=== PATIENT | female | born 1950 | race Caucasian/White ===

== ENCOUNTER → 2020-10-06 07:25 | Outpatient (CLI) | payer OTHER, SELFPAY ==
[2020-10-06 08:30] LABS: Add Manual Diff / Slide Review NO; Basophils Absolute Auto 100 /uL (0-100); Basophils Percent Auto 2.3 % (0-2); Eosinophils Absolute Auto 300 /uL (0-450); Eosinophils Percent Auto 8.7 % (2-4); Hematocrit 39.9 % (36-46); Hemoglobin 13.5 g/dL (12.0-16.0); Lymphocytes Absolute Auto 1900 /uL (1100-4500); Lymphocytes Percent Auto 49.3 % (25-40); Mean Corpuscular HGB Conc 33.8 % (30-36); Mean Corpuscular Hemoglobin 29.9 PG (26-34); Mean Corpuscular Volume 88.6 fL (80-100); Monocytes Absolute Auto 500 /uL (0-900); Monocytes Percent Auto 13.5 % (3-14); Neutrophils Absolute Auto 1000 /uL (1500-7000); Neutrophils Percent Auto 26.2 % (50-75); Platelet Count 214 X10^3/uL (150-400); Red Blood Cell Count 4.51 X10^6/uL (4.0-5.2); Red Cell Distribution Width 13.1 % (11.6-14.8); White Blood Cell Count 3.9 X10^3/uL (4.5-11.0)
[2020-10-06 08:53] LABS: Alanine Aminotransferase 23 IU/L (<35); Albumin 3.9 g/dL (3.5-5.0); Albumin Globulin Ratio 1.3 (1.0-2.8); Alkaline Phosphatase 101 U/L (38-126); Aspartate Aminotransferase 33 IU/L (14-36); BUN Creatinine Ratio 22.6 (6-22); Bilirubin Total 0.8 mg/dL (0.2-1.3); Blood Urea Nitrogen 21 mg/dL (7-17); Calcium 9.5 mg/dL (8.4-10.2); Carbon Dioxide 33 mmol/L (22-32); Chloride 108 mmol/L (98-107); Cholesterol 144 mg/dL (140-199); Estimated Glomerular Filt Rate 59.6 mL/min (>60); Globulin 2.9 g/dL (1.7-4.1); Glucose 98 mg/dL (80-110); HDL Cholesterol 58 mg/dL (40-60); HEMOLYSIS < 15 (0-50); LDL Cholesterol Calculated 57 mg/dL (<100); Potassium 4.9 mmol/L (3.4-5.1); Sodium 141 mmol/L (137-145); Total Protein 6.8 g/dL (6.3-8.2); Triglycerides 143 mg/dL (35-150)
[2020-10-06 09:59] LABS: Appearance Urine UA CLEAR; Bilirubin Urine UA NEGATIVE (NEGATIVE); Color Urine UA YELLOW; Glucose Urine UA NEGATIVE (Negative); Ketones Urine UA NEGATIVE (NEGATIVE); Leukocyte Esterase Urine UA 1+ (NEGATIVE); Nitrite Urine UA NEGATIVE (Negative); Occult Blood Urine UA NEGATIVE (Negative); Protein Urine UA NEGATIVE (Negative); Specific Gravity Urine UA 1.025 (1.000-1.035); Urobilinogen Urine UA 0.2 E.U./dL (0.2)
[2020-10-06 10:04] LABS: pH Urine UA 5.5 (4.5-8.0)
[2020-10-06 10:13] LABS: Bacteria Urine Few (2-10); Culture Indicated Urine Specimen Cultured; RBC Urine 0-1/HPF (0-5/HPF); Renal Epithelial Cells Urine 1-5/HPF (0-1/HPF); Squamous Epithelial Cell Urine 0-1 /HPF (0-5/HPF); Transitional Epi Cells Urine 1-5/HPF (0-5/HPF); WBC Urine 5-10/HPF (0-5/HPF)
== END ==
PROVIDERS: PCP Registered Nurse; Referring Provider Registered Nurse; Visit Provider Registered Nurse
DX: Z00.00 Encounter for general adult medical examination without abnormal findings (principal); I10 Essential (primary) hypertension; E78.5 Hyperlipidemia, unspecified
CPT/HCPCS: 36415; 80053; 80061; 81003; 81015; 85025; 87086

== ENCOUNTER → 2021-08-31 12:45 | Outpatient (CLI) | payer OTHER, SELFPAY ==
--- NOTE | 2021-08-31 12:49 | DI.RAD.S_ITS ---
PROCEDURE: XR FOOT RT MIN 3V INDICATIONS: Right foot pain TECHNIQUE: 3 views of the foot were acquired. COMPARISON: None. FINDINGS: Bones: No acute, displaced fracture. Moderate degenerative changes about the 1st metatarsophalangeal joint with osteophytosis and joint space loss. The 3rd tarsometatarsal articulation is not well seen, which may reflect degenerative change. No suspicious bony lesions. Soft tissues: No tibiotalar joint effusion. IMPRESSION: No acute osseous abnormality. Dictated by: Cosme Alexandra M.D. on 08/31/2021 at 13:56 Approved by: Cosme Alexandra M.D. on 08/31/2021 at 13:58
== END ==
PROVIDERS: PCP Registered Nurse; Referring Provider Nurse Practitioner; Visit Provider Nurse Practitioner
DX: M79.671 Pain in right foot (principal)
CPT/HCPCS: 73630

== ENCOUNTER 2024-11-23 07:25 | Inpatient (IN) | payer OTHER, SELFPAY ==
[2024-11-23] VITALS (71 sets, daily range): BP systolic 84–146; BP diastolic 43–84; PULSE 57–91; RESP 9–28; TEMP 37.2–38.8; O2SAT 89–100; BMI 26.2
--- NOTE | 2024-11-23 07:44 | DI.RAD.S_ITS ---
PROCEDURE: XR CHEST 1V INDICATIONS: fever TECHNIQUE: One view of the chest was acquired. COMPARISON: None. FINDINGS: Surgical changes and devices: None. Lungs and pleura: Mild patchy bibasilar atelectasis. No pleural effusions or pneumothorax. Mediastinum: Mediastinal contours appear normal. Heart size is normal. Bones and chest wall: No suspicious bony lesions. Overlying soft tissues appear unremarkable. IMPRESSION: Mild patchy bibasilar atelectasis. Dictated by: Seth Shepard M.D. on 11/23/2024 at 8:21 Approved by: Seth Shepard M.D. on 11/23/2024 at 8:22
--- NOTE | 2024-11-23 07:56 | ED_ITS ---
HPI - Fall General Chief Complaint: Fall Stated Complaint: GLF Time Seen by Provider: 11/23/24 07:44 History of Present Illness HPI Narrative: Patient 74-year-old female history of hyperlipidemia hypertension presenting today with a syncopal episode. Sounds like she was getting up to walk when she fell and hit her head. On known loss of consciousness. Does not appear to be on anticoagulation or antiplatelet medication. She was found to be febrile with a temperature of 101?. She denies any injury or pain from her fall. She is diffusely weak. Denies any sort cough or sore throat no nausea or vomiting. It sounds like she has not felt well for a couple days. She and both are poor historians Related Data Home Medications Medication Instructions Recorded Confirmed nitroglycerin 0.4 mg sublingual 0.4 mg sublingual PRN PRN Angina 11/23/24 11/23/24 tablet Allergies Allergy/AdvReac Type Severity Reaction Status Date / Time No Known Drug Allergies Allergy Verified 08/31/21 14:34 Patient History Surgical History Anesthesia History of cholecystectomy (~1990) Family History Father History of heart disease Mother Stroke Social History household members: spouse and family Smoking Status: Never smoker alcohol intake: current Smoking Status: Never smoker Exam Initial Vital Signs Initial Vital Signs: Vital Signs Pulse Rate 81 11/23/24 07:29 Respiratory Rate 22 11/23/24 07:29 Pulse Oximetry 94 11/23/24 07:29 GENERAL: Alert week 74-year-old female and in no acute distress. HEENT: Head atraumatic,EOMI, pupils reactive, face symmetric, dry mucous membranes CARDIOVASCULAR: Regular rate and rhythm without murmurs, rubs or gallops. RESPIRATORY: Breath sounds equal bilaterally, no wheezes rales or rhonchi. ABDOMEN: Soft, nontender. Normoactive bowel sounds all 4 quadrants. No guarding or rebound. EXTREMITIES: Normal range of motion, no clubbing or edema. Neurovascularly intact NEUROLOGICAL: Alert and oriented x4. [employer] Tender strength equal bilaterally lower extremities bilaterally diffusely weak SKIN: Warm, dry, no laceration, no petechiae, no rashes or lesions. Course Orders Ordered: ED Orders 11/23/24 12:40 UA Complete [Urinalysis and Microscopic] Stat 11/23/24 12:53 US abdomen limited Stat 11/23/24 13:35 Lactate (Lactic Acid) Stat 11/23/24 14:12 Blood Culture Stat Acetaminophen (Acetaminophen 325 Mg Tablet) 650 mg PO Q6H PRN PRN Reason: Fever/Mild Pain (1-3) Enoxaparin Sodium (Enoxaparin 40 Mg/0.4 Ml Syringe) 40 mg SUBCUT DAILY [facility] Sodium Chloride (Normal Saline 0.9%) 1,000 mls @ 100 mls/hr IV CONT FRANCISCO Last Admin: 11/23/24 18:31 Dose: 100 mls/hr Documented By: CLL Ibuprofen (Ibuprofen 400 Mg Tablet) 400 mg PO Q4H PRN PRN Reason: Pain, Mild (1-3) Naloxone HCl (Naloxone 0.4 Mg/Ml Vial) 0.2 mg IV Q2MIN PRN PRN Reason: Opiate Reversal Ondansetron HCl (Ondansetron 4 Mg Odt) 4 mg PO Q8HR PRN PRN Reason: Nausea And Vomiting Last Admin: 11/23/24 18:33 Dose: 4 mg Documented By: ERIS Oseltamivir Phosphate (Oseltamivir 75 Mg Capsule) 75 mg PO BID [facility] Last Admin: 11/23/24 16:36 Dose: 75 mg Documented By: TLS Discontinued Medications Acetaminophen (Acetaminophen 325 Mg Tablet) 975 mg PO NOW ONE Stop: 11/23/24 08:43 Last Admin: 11/23/24 09:10 Dose: 975 mg Documented By: SPF Sodium Chloride (Normal Saline 0.9%) 1,000 mls @ 1,000 mls/hr IV BOLUS ONE Stop: 11/23/24 09:41 Last Infusion: 11/23/24 10:47 Dose: Infused Documented By: Admin: 11/23/24 09:10 Dose: 1,000 mls/hr Documented By: SPF Sodium Chloride (Normal Saline 0.9%) 2,013.96 mls @ 671.32 mls/hr 30 ml/kg infuse over 3 hr (2013.96 ml) IV NOW ONE Stop: 11/23/24 14:36 Last Infusion: 11/23/24 15:00 Dose: Infused Documented By: Admin: 11/23/24 11:57 Dose: 671.32 mls/hr Documented By: SP Ceftriaxone Sodium 1,000 mg/ (Sodium Chloride) 100 mls @ 200 mls/hr IV NOW ONE Stop: 11/23/24 11:38 Last Infusion: 11/23/24 15:00 Dose: Infused Documented By: Admin: 11/23/24 14:17 Dose: 200 mls/hr Documented By: SP Azithromycin 500 mg/ Dextrose 250 mls @ 250 mls/hr IV NOW ONE Stop: 11/23/24 11:38 Last Admin: 11/23/24 14:57 Dose: 250 mls/hr Documented By: PAOLO Sodium Chloride (Normal Saline 0.9%) 1,000 mls @ 1,000 mls/hr IV BOLUS ONE Stop: 11/23/24 16:44 Last Admin: 11/23/24 16:36 Dose: 1,000 mls/hr Documented By: MICHELLE Vital Signs Vital signs: Vital Signs - 8 hr 11/23/24 11:30 11/23/24 11:30 11/23/24 11:35 Pulse Rate 59 L 57 L Respiratory Rate 17 16 Blood Pressure 88/50 L Pulse Oximetry 97 98 Oxygen Delivery Method Nasal Cannula Oxygen Flow Rate 2 11/23/24 11:35 11/23/24 11:40 11/23/24 11:40 Pulse Rate 58 L Respiratory Rate 20 Blood Pressure 92/50 L 95/50 L Pulse Oximetry 99 Oxygen Delivery Method Nasal Cannula Oxygen Flow Rate 2 11/23/24 11:45 11/23/24 11:45 11/23/24 11:50 Pulse Rate 57 L Respiratory Rate 21 Blood Pressure 86/51 L 94/53 L Pulse Oximetry 99 Oxygen Delivery Method Oxygen Flow Rate 11/23/24 11:50 11/23/24 11:55 11/23/24 11:55 Pulse Rate 63 63 Respiratory Rate 24 18 Blood Pressure 97/51 L Pulse Oximetry 98 99 Oxygen Delivery Method Nasal Cannula Oxygen Flow Rate 2 11/23/24 12:00 11/23/24 12:13 11/23/24 12:13 Pulse Rate 66 89 Respiratory Rate 19 21 Blood Pressure 125/63 Pulse Oximetry 98 98 Oxygen Delivery Method Oxygen Flow Rate 11/23/24 12:15 11/23/24 12:15 11/23/24 12:20 Pulse Rate 77 78 Respiratory Rate 21 24 Blood Pressure 112/54 L Pulse Oximetry 100 100 Oxygen Delivery Method Oxygen Flow Rate 11/23/24 12:20 11/23/24 12:25 11/23/24 12:25 Pulse Rate 79 Respiratory Rate 24 Blood Pressure 113/58 L 106/54 L Pulse Oximetry 99 Oxygen Delivery Method Nasal Cannula Oxygen Flow Rate 2 11/23/24 12:30 11/23/24 12:30 11/23/24 12:35 Pulse Rate 75 Respiratory Rate 21 Blood Pressure 115/54 L 109/55 L Pulse Oximetry 100 Oxygen Delivery Method Oxygen Flow Rate 11/23/24 12:35 11/23/24 12:40 11/23/24 12:40 Pulse Rate 76 75 Respiratory Rate 23 Blood Pressure 106/55 L Pulse Oximetry 100 99 Oxygen Delivery Method Nasal Cannula Oxygen Flow Rate 2 11/23/24 12:45 11/23/24 12:45 11/23/24 12:50 Pulse Rate 78 72 Respiratory Rate 20 22 Blood Pressure 115/58 L Pulse Oximetry 98 99 Oxygen Delivery Method Oxygen Flow Rate 11/23/24 12:50 11/23/24 12:55 11/23/24 12:55 Pulse Rate 68 Respiratory Rate 23 Blood Pressure 111/54 L 101/52 L Pulse Oximetry 99 Oxygen Delivery Method Nasal Cannula Oxygen Flow Rate 2 11/23/24 13:00 11/23/24 13:00 11/23/24 13:05 Pulse Rate 60 66 Respiratory Rate 19 20 Blood Pressure 97/52 L Pulse Oximetry 100 99 Oxygen Delivery Method Oxygen Flow Rate 11/23/24 13:05 11/23/24 13:10 11/23/24 13:10 Pulse Rate 71 Respiratory Rate 23 Blood Pressure 97/50 L 90/48 L Pulse Oximetry 98 Oxygen Delivery Method Nasal Cannula Oxygen Flow Rate 2 11/23/24 13:15 11/23/24 13:15 11/23/24 13:20 Pulse Rate 58 L 57 L Respiratory Rate 19 20 Blood Pressure 97/49 L Pulse Oximetry 99 99 Oxygen Delivery Method Oxygen Flow Rate 11/23/24 13:20 11/23/24 13:30 11/23/24 13:40 Pulse Rate 73 69 Respiratory Rate 23 23 Blood Pressure 97/51 L Pulse Oximetry 100 100 Oxygen Delivery Method Oxygen Flow Rate 11/23/24 13:40 Pulse Rate Respiratory Rate Blood Pressure 112/54 L Pulse Oximetry Oxygen Delivery Method Oxygen Flow Rate MDM - Fall Lab Data 11/23/24 07:37 11/23/24 07:37 Labs: Lab Results 11/23/24 11/23/24 11/23/24 Range/Units 07:37 12:40 13:35 WBC 7.3 (4.5-11.0) X10^3/uL RBC 4.43 (4.0-5.2) X10^6/uL Hgb 13.0 (12.0-16.0) g/dL Hct 38.8 (36-46) % MCV 87.6 (80-100) fL MCH 29.4 (26-34) PG MCHC 33.5 (30-36) % RDW 13.5 (11.6-14.8) % Plt Count 238 (150-400) X10^3/uL Neut % (Auto) 86.0 H (50-75) % Lymph % (Auto) 8.5 L (25-40) % [place] % (Auto) 4.6 (3-14) % Eos % (Auto) 0.4 L (2-4) % Baso % (Auto) 0.5 (0-2) % Neut # (Auto) 6300 (6568-0229) /uL Lymph # (Auto) 600 L (6271-0636) /uL [place] # (Auto) 300 (0-900) /uL Eos # (Auto) 0 (0-450) /uL Baso # (Auto) 0 (0-100) /uL Sodium 138 (137-145) mmol/L Potassium 4.3 (3.4-5.1) mmol/L Chloride 106 (98-107) mmol/L Carbon Dioxide 26 (22-32) mmol/L BUN 16 (7-17) mg/dL Creatinine 1.06 H (0.52-1.04) mg/dL Estimated GFR 55 L (>60) mL/min BUN/Creatinine Ratio 15.1 (6-22) Glucose 122 H (80-110) mg/dL Lactate 1.3 1.1 (0.7-2.1) mmol/L Calcium 9.6 (8.4-10.2) mg/dL Total Bilirubin 0.8 (0.2-1.3) mg/dL AST 188 H (14-36) IU/L ALT 86 H (<35) IU/L Alkaline Phosphatase 115 (38-126) U/L Total Creatine Kinase 69 (30-135) U/L Troponin I < 0.012 (0.01-0.034) ng/mL Total Protein 7.4 (6.3-8.2) g/dL Albumin 4.4 (3.5-5.0) g/dL Globulin 3.0 (1.7-4.1) g/dL Albumin/Globulin Ratio 1.5 (1.0-2.8) Procalcitonin 0.201 (<0.5) ng/mL Urine Color Yellow Urine Appearance Clear Urine pH 6.5 (4.5-8.0) Ur Specific [place] 1.010 (1.000-1.035) Urine Protein Negative (Negative) Urine Glucose (UA) Negative (Negative) g/dL Urine Ketones Negative (NEGATIVE) Urine Occult Blood Negative (Negative) Urine Nitrate Negative (Negative) Urine Bilirubin Negative (NEGATIVE) Urine Urobilinogen 2.0 H (0.2) E.U./dL Ur Leukocyte Esterase Negative (NEGATIVE) Urine RBC None seen (0-5/HPF) Urine WBC None seen (0-5/HPF) Ur Squamous Epith Cells None seen (0-5/HPF) Urine Bacteria None seen (None) Ur Culture Indicated? Cult not indicated Vol Urine Centrifuged 10ml (spun) SARS-CoV-2 (PCR) Negative (Negative) Influenza A (RT-PCR) Flu a positive H (NEGATIVE) Influenza B (RT-PCR) Flu b negative (NEGATIVE) RSV (PCR) Negative (Negative) Imaging Data Chest x-ray: Radiologist's Impression: PROCEDURE: XR CHEST 1V INDICATIONS: fever TECHNIQUE: One view of the chest was acquired. COMPARISON: None. FINDINGS: Surgical changes and devices: None. Lungs and pleura: Mild patchy bibasilar atelectasis. No pleural effusions or pneumothorax. Mediastinum: Mediastinal contours appear normal. Heart size is normal. Bones and chest wall: No suspicious bony lesions. Overlying soft tissues appear unremarkable. IMPRESSION: Mild patchy bibasilar atelectasis. Dictated by: Seth Shepard M.D. 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 Pertinent findings: + influenza a Lactate 1.3-->1.1 WBC 7.3 hemoglobin 13.0 hematocrit 38.8 platelets 238 Sodium 138 potassium 4.3 chloride 106 carbon dioxide 26 BUN 16 creatinine 1.0 previously 0.9 Bilirubin 0.8 AST is 188 ALT 86 alk-phos 115 Troponin negative, CPK 69 Independently reviewed EKG as above Sinus rhythm no ischemia Imaging studies independently reviewed: Chest x-ray patchy bibasilar atelectasis Head CT no acute trauma Consultations: Dr. Gordon accepts patient Treatments: Fluids IV Tylenol Sepsis fluids Re-evaluations: Patient blood pressure started decreasing. Sepsis fluids given blood pressure did respond. Repeat lactate 1.1 Discussion: 74-year-old female presenting today after syncopal episode. She is diffusely weak no evidence of trauma. She is found to be febrile with a positive influenza patchy atelectasis on her x-ray but not requiring oxygen. She has not hypoxic. Other blood work is overall reassuring. Critical Care Time Critical Care Time Critical Care Time: Yes Total Critical Care Time: 35 Attestation: The high probability of a clinically significant, sudden or life threatening deterioration of the [cardiovascular] system(s) required my full and direct attention, intervention and personal management. The aggregate critical care time was 35 minutes. This time is in addition to time spent performing reported procedures but includes the following: [x] Data Review and interpretation [x] Patient assessment and monitoring of vital signs [x] Documentation [x] Medication orders and management Discharge Plan Departure Patient Disposition: Admitted As Inpatient Clinical Impression: Sepsis, Influenza A Admit Date/Time: 11/23/24 13:42 Admit Provider: Amilcar Gordon
[2024-11-23 07:57] LABS: Add Manual Diff / Slide Review NO; Basophils Absolute Auto 0 /uL (0-100); Basophils Percent Auto 0.5 % (0-2); Eosinophils Absolute Auto 0 /uL (0-450); Eosinophils Percent Auto 0.4 % (2-4); Hematocrit 38.8 % (36-46); Lymphocytes Absolute Auto 600 /uL (1100-4500); Lymphocytes Percent Auto 8.5 % (25-40); Mean Corpuscular HGB Conc 33.5 % (30-36); Mean Corpuscular Hemoglobin 29.4 PG (26-34); Mean Corpuscular Volume 87.6 fL (80-100); Monocytes Absolute Auto 300 /uL (0-900); Monocytes Percent Auto 4.6 % (3-14); Neutrophils Absolute Auto 6300 /uL (1500-7000); Platelet Count 238 X10^3/uL (150-400); Red Blood Cell Count 4.43 X10^6/uL (4.0-5.2); Red Cell Distribution Width 13.5 % (11.6-14.8); White Blood Cell Count 7.3 X10^3/uL (4.5-11.0)
--- NOTE | 2024-11-23 08:02 | EKG_ITS ---
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
[2024-11-23 08:04] LABS: Lactate (Lactic Acid) 1.3 mmol/L (0.7-2.1)
[2024-11-23 08:05] LABS: Alanine Aminotransferase 86 IU/L (<35); Albumin 4.4 g/dL (3.5-5.0); Albumin Globulin Ratio 1.5 (1.0-2.8); Alkaline Phosphatase 115 U/L (38-126); Aspartate Aminotransferase 188 IU/L (14-36); BUN Creatinine Ratio 15.1 (6-22); Bilirubin Total 0.8 mg/dL (0.2-1.3); Blood Urea Nitrogen 16 mg/dL (7-17); Calcium 9.6 mg/dL (8.4-10.2); Carbon Dioxide 26 mmol/L (22-32); Chloride 106 mmol/L (98-107); Creatine Kinase 69 U/L (30-135); Estimated Glomerular Filt Rate 55 mL/min (>60); Glucose 122 mg/dL (80-110); HEMOLYSIS < 15 (0-50); Potassium 4.3 mmol/L (3.4-5.1); Sodium 138 mmol/L (137-145); Total Protein 7.4 g/dL (6.3-8.2)
[2024-11-23 08:17] LABS: Troponin I < 0.012 ng/mL (0.01-0.034)
[2024-11-23 08:22] LABS: Procalcitonin 0.201 ng/mL (<0.5)
[2024-11-23 08:29] LABS: Influenza A - CEPHEID Flu A POSITIVE (NEGATIVE); Influenza B - CEPHEID Flu B NEGATIVE (NEGATIVE); Respiratory Syncytial Virus Negative (Negative)
[2024-11-23 08:30] LABS: COVID-19 CEPHEID 4-PLEX PCR Negative (Negative)
--- NOTE | 2024-11-23 08:35 | PC.NURSE ---
Pt in bed with incontinent episode. Assisted pt up out of bed and up to the BSC. Pt also had BM incontinence and thorough carri care was performed prior to sitting on commode. Pt continued to have BM and urine sample was contaminated. Changed pt into clean brief and linens changed. Pt had difficulty standing on her own with a walker which is unusual per her . Pt resting in bed, call light in reach and spouse at bedside.
[2024-11-23] MEDS: SODIUM CHLORIDE 0.9% 1,000 ML 1000 ML IV ×2 (09:10→16:36)
[2024-11-23] MEDS: ACETAMINOPHEN 325 MG TABLET 975 MG PO (09:10)
--- NOTE | 2024-11-23 10:10 | DI.CT.S_ITS ---
PROCEDURE: CT HEAD/BRAIN WO CON INDICATIONS: unwitnessed fall TECHNIQUE: Noncontrast 4.5 mm thick angled axial sections acquired from the foramen magnum to the vertex, with coronal and sagittal reformats. For radiation dose reduction, the following was used: automated exposure control, adjustment of mA and/or kV according to patient size. COMPARISON: None. FINDINGS: Image quality: Diagnostic. CSF spaces: Basal cisterns are patent. No extra-axial fluid collections. The ventricles are symmetric in size and shape. Brain: No intracranial bleeds or masses. There is cerebral volume loss for age, with resultant ventricular and sulcal prominence. There are periventricular and deep white matter chronic small vessel ischemic changes. There is intracranial internal carotid artery atherosclerosis. Skull and face: Calvarium and visualized facial bones appear intact, without suspicious lesions. Sinuses: Visualized sinuses and mastoids are clear. IMPRESSION: No acute intracranial pathology. Dictated by: Iain Alaniz M.D. on 11/23/2024 at 11:32 Approved by: Iain Alaniz M.D. on 11/23/2024 at 11:34
--- NOTE | 2024-11-23 11:00 | PC.NURSE ---
Addendum entered by Hung Moran R.N. 11/23/24 11:23: Dr. Brenner was notified of hypotension and pt placed on q5min vitals. Original Note: Pt was able to walk in the room and reports feeling better after tylenol and IV fluids. Once back in bed pt having hypoxia down to 89% room air. Pt placed on 2L NC. Pt bp is hypotensive. repositioned BP cuff and Map above 70. She denies dizziness or lightheaded. Denies headache or chest pain. Pt does not use oxygen or cpap at home. Bilateral bases of lungs have fine crackles upon auscultation.
[2024-11-23] MEDS: SODIUM CHLORIDE 0.9% 671.32 ML IV (11:57)
--- NOTE | 2024-11-23 12:45 | PC.NURSE ---
lab unable to obtain 2nd set of cultures. I placed a 2nd IV but cannot draw blood from line. Lab to have another tech come draw cultures.
--- NOTE | 2024-11-23 12:53 | DI.US.S_ITS ---
PROCEDURE: US ABDOMEN LIMITED INDICATIONS: RUQ elevated liver enzymes TECHNIQUE: Real-time scanning was performed of the abdominal and retroperitoneal organs, with image documentation. COMPARISON: None. FINDINGS: Liver: Liver is normal in size and homogeneous in echotexture. Gallbladder: Surgically absent. Biliary ducts: Intrahepatic bile ducts are non-dilated. Extrahepatic bile duct caliber measures 9.8 mm. Normal is 6-7 mm or less in diameter, or 10 mm or less post-cholecystectomy. Pancreas: Visualized portions of the pancreas are sonographically normal. The pancreatic tail is not well seen secondary to overlying bowel gas. Miscellaneous: No free abdominal fluid. IMPRESSION: Liver is normal in appearance. Status post cholecystectomy. Bile ducts are normal in size for post cholecystectomy status. Dictated by: Iain Alaniz M.D. on 11/23/2024 at 13:45 Approved by: Iain Alaniz M.D. on 11/23/2024 at 13:47
[2024-11-23 12:59] LABS: Appearance Urine UA CLEAR; Bilirubin Urine UA NEGATIVE (NEGATIVE); Color Urine UA YELLOW; Glucose Urine UA NEGATIVE (Negative); Ketones Urine UA NEGATIVE (NEGATIVE); Leukocyte Esterase Urine UA NEGATIVE (NEGATIVE); Nitrite Urine UA NEGATIVE (Negative); Occult Blood Urine UA NEGATIVE (Negative); Protein Urine UA NEGATIVE (Negative)
[2024-11-23 13:01] LABS: pH Urine UA 6.5 (4.5-8.0)
[2024-11-23 13:02] LABS: Urine Volume 10mL (spun)
[2024-11-23 13:08] LABS: Bacteria Urine None Seen; Culture Indicated Urine Cult Not Indicated; RBC Urine None Seen (0-5/HPF); Squamous Epithelial Cell Urine None Seen (0-5/HPF); WBC Urine None Seen (0-5/HPF)
--- NOTE | 2024-11-23 13:35 | PC.NURSE ---
Lab at bedside to attempt lab draw to obtain 2nd set of cultures. Lab unable to obtain blood for 2nd culture. Consulted Dr. Brenner who okayed drawing 2nd set from the same line as first set of cultures.
[2024-11-23 14:01] LABS: Lactate (Lactic Acid) 1.1 mmol/L (0.7-2.1)
--- NOTE | 2024-11-23 14:15 | PC.NURSE ---
2nd set of cultures obtained from same IV as first set of cultures. Dr. Elidia laureano. Antibiotics hung after 2nd blood culture.
[2024-11-23] MEDS: cefTRIAXone 1,000 MG in SODIUM CHLORIDE 0.9% 100 ML 200 MG IV (14:17)
[2024-11-23] MEDS: AZITHROMYCIN 500 MG in DEXTROSE 5% IN WATER 250 ML 250 MG IV (14:57)
--- NOTE | 2024-11-23 15:05 | CM.DANOTE ---
DCP Assessment Note: Pt is a 74yo female, resident of [place], is admitted for hypoxia, sepsis, s/p GLF. Pt lives in a house with her spouse, daughter and her two grandchildren. Patient states she does not have a current PCP and insurance is [employer] and [employer]. Reviewed chart and team rounds for pt's medical status and initial discharge needs. ED HOSPICE NURSE met w/patient at bedside; introduced self and role. Present in the room is pt's , Julianne. Patient was found in bed, alert and oriented, cooperative with assessment. Pt confirmed living situation and good support in . It is reported that pt is independent at baseline. Pt expressed preference in discharge home when appropriate. Pt has no prior hx of SNF or Home health, declining referrals to the community at this time. Plan: Anticipating discharge home with family when medically stable, pending admission for IV abx and O2 therapy. CM team will follow closely for coordination of discharge plans. Shelby Brown [facility] Discharge Planning/Care Management CM Discharge Assessment Start: 11/23/24 15:03 Freq: Status: Active Protocol: Document 11/23/24 15:03 MW (Rec: 11/23/24 15:04 [id number]) Discharge Planning Assessment Assigned Tabulating Clerk KIRBY Ryan DPOA/Assigned Designee Name Huang Whitaker Contact Information [phone] Advance Directives? No History Provided By Patient,Family Member,Medical Record Prior Living Arrangements House Household Members spouse,family Comment Spouse, daughter, and 2 grandchildren Type of transporation used prior to Relies on Others admit Independent with ADL's Yes Is patient alert and oriented? Yes Caregiver for Another No Barriers to Discharge No Discharge Plan Home Review Status In Process Please Provide Date Initial DC 11/23/24 Assessment Was Performed Next Review Type Continued Stay Review
--- NOTE | 2024-11-23 16:05 | PC.NURSE ---
1Liter NS fluid given as a bolus. Provider then ordered sepsis bundle fluid. I clarified with Dr. Brenner and she states Sepsis fluid total (2,013cc) is sufficient. 1L given as a bolus and 1L given for sepsis protocol for a total IV fluid intake of 2,013cc while in ER.
[2024-11-23] MEDS: OSELTAMIVIR 75 MG CAPSULE PO ×2 (16:36→20:34)
--- NOTE | 2024-11-23 17:51 | PC.NURSE ---
Patient settled in her bed, she has the flu. No coughing heard as of yet. She is mobile and was able to transfer to the bed from the [facility]. She is resting comfortably and eating some. Her is in the room visiting.
[2024-11-23] MEDS: SODIUM CHLORIDE 0.9% 1,000 ML 100 ML IV (18:31)
[2024-11-23] MEDS: ONDANSETRON 4 MG ODT PO (18:33)
--- NOTE | 2024-11-23 20:05 | P.HP_ITS ---
History of Present Illness History of Present Illness Date Patient Seen: 11/23/24 Time Patient Seen: 20:00 Chief complaint: GLF Narrative: 74 y/o with PMH of HTN and mixed HLD, sustained GLF at home due to generalized and bilateral leg weakness. She did not sustain significant injuries. On presentation febrile, tachycardic, hypotensive, tachypneic. Septic, hypoxemic, with Influenza A pneumonia. Her presented with similar symptoms. Admitted for bronchodilator, Tamiflu, oxygen, IVF, supportive care FOR[facility], [facility] Surgical History Anesthesia History of cholecystectomy (~1990) Family History Father History of heart disease Mother Stroke Social History household members: spouse and family Smoking Status: Never smoker alcohol intake: current Meds Home Medications and Allergies Home Medications Medication Instructions Recorded Confirmed Type nitroglycerin 0.4 mg sublingual 0.4 mg sublingual PRN PRN Angina 11/23/24 11/23/24 History tablet Allergies Allergy/AdvReac Type Severity Reaction Status Date / Time No Known Drug Allergies Allergy Verified 08/31/21 14:34 Review of Systems Constitutional Comments: generalized weakness, fever Cardiovascular Comments: w/o chest pain Respiratory Comments: short of breath Musculoskeletal Comments: myalgia Exam Vital Signs (past 8 hours): - 11/23/24 12:13 11/23/24 12:13 11/23/24 12:15 Temperature Pulse Rate 89 Respiratory Rate 21 Blood Pressure 125/63 112/54 L Pulse Oximetry 98 Oxygen Delivery Method Oxygen Flow Rate 11/23/24 12:15 11/23/24 12:20 11/23/24 12:20 Temperature Pulse Rate 77 78 Respiratory Rate 21 24 Blood Pressure 113/58 L Pulse Oximetry 100 100 Oxygen Delivery Method Oxygen Flow Rate 11/23/24 12:25 11/23/24 12:25 11/23/24 12:30 Temperature Pulse Rate 79 75 Respiratory Rate 24 21 Blood Pressure 106/54 L Pulse Oximetry 99 100 Oxygen Delivery Method Nasal Cannula Oxygen Flow Rate 2 11/23/24 12:30 11/23/24 12:35 11/23/24 12:35 Temperature Pulse Rate 76 Respiratory Rate 23 Blood Pressure 115/54 L 109/55 L Pulse Oximetry 100 Oxygen Delivery Method Nasal Cannula Oxygen Flow Rate 2 11/23/24 12:40 11/23/24 12:40 11/23/24 12:45 Temperature Pulse Rate 75 78 Respiratory Rate 20 Blood Pressure 106/55 L Pulse Oximetry 99 98 Oxygen Delivery Method Oxygen Flow Rate 11/23/24 12:45 11/23/24 12:50 11/23/24 12:50 Temperature Pulse Rate 72 Respiratory Rate 22 Blood Pressure 115/58 L 111/54 L Pulse Oximetry 99 Oxygen Delivery Method Oxygen Flow Rate 11/23/24 12:55 11/23/24 12:55 11/23/24 13:00 Temperature Pulse Rate 68 Respiratory Rate 23 Blood Pressure 101/52 L 97/52 L Pulse Oximetry 99 Oxygen Delivery Method Nasal Cannula Oxygen Flow Rate 2 11/23/24 13:00 11/23/24 13:05 11/23/24 13:05 Temperature Pulse Rate 60 66 Respiratory Rate 19 20 Blood Pressure 97/50 L Pulse Oximetry 100 99 Oxygen Delivery Method Oxygen Flow Rate 11/23/24 13:10 11/23/24 13:10 11/23/24 13:15 Temperature Pulse Rate 71 Respiratory Rate 23 Blood Pressure 90/48 L 97/49 L Pulse Oximetry 98 Oxygen Delivery Method Nasal Cannula Oxygen Flow Rate 2 11/23/24 13:15 11/23/24 13:20 11/23/24 13:20 Temperature Pulse Rate 58 L 57 L Respiratory Rate 19 20 Blood Pressure 97/51 L Pulse Oximetry 99 99 Oxygen Delivery Method Oxygen Flow Rate 11/23/24 13:30 11/23/24 13:40 11/23/24 13:40 Temperature Pulse Rate 73 69 Respiratory Rate 23 23 Blood Pressure 112/54 L Pulse Oximetry 100 100 Oxygen Delivery Method Oxygen Flow Rate 11/23/24 13:45 11/23/24 13:45 11/23/24 13:50 Temperature Pulse Rate 64 Respiratory Rate 21 Blood Pressure 113/56 L 111/53 L Pulse Oximetry 99 Oxygen Delivery Method Nasal Cannula Oxygen Flow Rate 2 11/23/24 13:50 11/23/24 13:55 11/23/24 13:55 Temperature Pulse Rate 57 L 57 L Respiratory Rate 20 19 Blood Pressure 101/54 L Pulse Oximetry 100 99 Oxygen Delivery Method Oxygen Flow Rate 11/23/24 14:00 11/23/24 14:00 11/23/24 14:05 Temperature Pulse Rate 59 L 67 Respiratory Rate 19 20 Blood Pressure 113/56 L Pulse Oximetry 100 96 Oxygen Delivery Method Oxygen Flow Rate 11/23/24 14:05 11/23/24 14:10 11/23/24 14:10 Temperature Pulse Rate 70 Respiratory Rate 21 Blood Pressure 114/57 L 120/62 Pulse Oximetry 99 Oxygen Delivery Method Oxygen Flow Rate 11/23/24 14:15 11/23/24 14:15 11/23/24 14:20 Temperature Pulse Rate 64 73 Respiratory Rate 20 22 Blood Pressure 122/62 Pulse Oximetry 98 97 Oxygen Delivery Method Nasal Cannula Oxygen Flow Rate 2 11/23/24 14:20 11/23/24 14:25 11/23/24 14:25 Temperature Pulse Rate 74 Respiratory Rate 21 Blood Pressure 125/59 L 122/61 Pulse Oximetry 98 Oxygen Delivery Method Oxygen Flow Rate 11/23/24 14:30 11/23/24 14:30 11/23/24 14:35 Temperature Pulse Rate 63 63 Respiratory Rate 20 22 Blood Pressure 123/62 Pulse Oximetry 98 99 Oxygen Delivery Method Nasal Cannula Oxygen Flow Rate 2 11/23/24 14:35 11/23/24 14:40 11/23/24 14:40 Temperature Pulse Rate 68 Respiratory Rate 22 Blood Pressure 130/60 127/60 Pulse Oximetry 99 Oxygen Delivery Method Oxygen Flow Rate 11/23/24 14:45 11/23/24 14:45 11/23/24 14:50 Temperature Pulse Rate 68 64 Respiratory Rate 21 21 Blood Pressure 127/60 Pulse Oximetry 98 99 Oxygen Delivery Method Oxygen Flow Rate 11/23/24 14:50 11/23/24 14:55 11/23/24 14:55 Temperature Pulse Rate 65 Respiratory Rate 20 Blood Pressure 129/63 128/59 L Pulse Oximetry 97 Oxygen Delivery Method Oxygen Flow Rate 11/23/24 15:00 11/23/24 15:00 11/23/24 15:05 Temperature Pulse Rate 71 85 Respiratory Rate 23 28 H Blood Pressure 137/64 Pulse Oximetry 98 92 Oxygen Delivery Method Oxygen Flow Rate 11/23/24 15:05 11/23/24 15:10 11/23/24 15:10 Temperature Pulse Rate 83 Respiratory Rate 24 Blood Pressure 117/58 L 130/60 Pulse Oximetry Oxygen Delivery Method Oxygen Flow Rate 11/23/24 15:15 11/23/24 15:15 11/23/24 15:20 Temperature 100.3 F H Pulse Rate 76 91 H Respiratory Rate 21 22 Blood Pressure 126/64 Pulse Oximetry 92 Oxygen Delivery Method Nasal Cannula Oxygen Flow Rate 2 11/23/24 15:20 11/23/24 16:00 Temperature 101.1 F H Pulse Rate 83 Respiratory Rate 15 Blood Pressure 131/58 L 107/84 Pulse Oximetry 95 Oxygen Delivery Method Oxygen Flow Rate 2 Oxygen Delivery Method Nasal Cannula Oxygen Flow Rate 2 Const Other: in no distress HENMT Other: normocephalic Resp Other: b/l rhonchi Cardio Other: RRR Neuro Other: no deficits Extrem Other: w/o swelling Objective ECG Impression: NSR 75 w/o ischemic changes Labs 11/24/24 06:03 11/24/24 06:03 Labs: Laboratory Results - last 24 hr 11/23/24 11/23/24 11/23/24 07:37 12:40 13:35 WBC 7.3 RBC 4.43 Hgb 13.0 Hct 38.8 MCV 87.6 MCH 29.4 MCHC 33.5 RDW 13.5 Plt Count 238 Neut % (Auto) 86.0 H Lymph % (Auto) 8.5 L [place] % (Auto) 4.6 Eos % (Auto) 0.4 L Baso % (Auto) 0.5 Neut # (Auto) 6300 Lymph # (Auto) 600 L [place] # (Auto) 300 Eos # (Auto) 0 Baso # (Auto) 0 Sodium 138 Potassium 4.3 Chloride 106 Carbon Dioxide 26 BUN 16 Creatinine 1.06 H Estimated GFR 55 L BUN/Creatinine Ratio 15.1 Glucose 122 H Lactate 1.3 1.1 Calcium 9.6 Total Bilirubin 0.8 AST 188 H ALT 86 H Alkaline Phosphatase 115 Total Creatine Kinase 69 Troponin I < 0.012 Total Protein 7.4 Albumin 4.4 Globulin 3.0 Albumin/Globulin Ratio 1.5 Procalcitonin 0.201 Urine Color Yellow Urine Appearance Clear Urine pH 6.5 Ur Specific [place] 1.010 Urine Protein Negative Urine Glucose (UA) Negative Urine Ketones Negative Urine Occult Blood Negative Urine Nitrate Negative Urine Bilirubin Negative Urine Urobilinogen 2.0 H Ur Leukocyte Esterase Negative Urine RBC None seen Urine WBC None seen Ur Squamous Epith Cells None seen Urine Bacteria None seen Ur Culture Indicated? Cult not indicated Vol Urine Centrifuged 10ml (spun) SARS-CoV-2 (PCR) Negative Influenza A (RT-PCR) Flu a positive H Influenza B (RT-PCR) Flu b negative RSV (PCR) Negative Assessment & Plan Assessment and plan (1) Influenza A with pneumonia: Status: Acute (2) Acute hypoxic respiratory failure: Status: Acute (3) Sepsis: Status: Acute (4) Hyperlipidemia: Status: Acute (5) Essential hypertension: Status: Chronic Assessment & Plan narrative: Influenza A Pneumonia with hypoxia - oxygen - Tamiflu - bronchodilators Sepsis - IVF HTN / HLD - on no medications DVT prophylaxis - Lovenox Time-Based Coding :: [TOTAL MINUTES] spent with patient and on the chart (including review of chart, obtaining history, exam, reviewing outside data, placing orders, documenting exam and treatment plan, and counseling patient) on [DATE]. Quality VTE Deep Vein Thrombosis/Pulmonary Embolism Present on Admission: No
[2024-11-23] MEDS: ACETAMINOPHEN 325 MG TABLET 650 MG PO (20:33)
[2024-11-24 00:05] VITALS: BP 105/50; PULSE 66; RESP 16; TEMP 37.1; O2SAT 97
[2024-11-24 00:46] VITALS: BP 106/60
[2024-11-24 04:25] VITALS: BP 109/61; PULSE 64; RESP 16; TEMP 36.3; O2SAT 94
[2024-11-24 06:21] LABS: Add Manual Diff / Slide Review NO; Basophils Absolute Auto 0 /uL (0-100); Basophils Percent Auto 0.2 % (0-2); Eosinophils Absolute Auto 0 /uL (0-450); Hematocrit 36.1 % (36-46); Hemoglobin 12.1 g/dL (12.0-16.0); Lymphocytes Absolute Auto 1500 /uL (1100-4500); Lymphocytes Percent Auto 10.6 % (25-40); Mean Corpuscular HGB Conc 33.4 % (30-36); Mean Corpuscular Hemoglobin 29.7 PG (26-34); Mean Corpuscular Volume 88.7 fL (80-100); Monocytes Absolute Auto 700 /uL (0-900); Monocytes Percent Auto 4.5 % (3-14); Neutrophils Absolute Auto 12300 /uL (1500-7000); Neutrophils Percent Auto 84.7 % (50-75); Platelet Count 183 X10^3/uL (150-400); Red Blood Cell Count 4.06 X10^6/uL (4.0-5.2); Red Cell Distribution Width 13.6 % (11.6-14.8); White Blood Cell Count 14.5 X10^3/uL (4.5-11.0)
[2024-11-24 06:33] LABS: Alanine Aminotransferase 108 IU/L (<35); Albumin 2.9 g/dL (3.5-5.0); Albumin Globulin Ratio 1.3 (1.0-2.8); Alkaline Phosphatase 85 U/L (38-126); Aspartate Aminotransferase 140 IU/L (14-36); BUN Creatinine Ratio 20.3 (6-22); Bilirubin Total 0.8 mg/dL (0.2-1.3); Blood Urea Nitrogen 16 mg/dL (7-17); Calcium 8.3 mg/dL (8.4-10.2); Carbon Dioxide 21 mmol/L (22-32); Chloride 111 mmol/L (98-107); Estimated Glomerular Filt Rate > 60 mL/min (>60); Globulin 2.2 g/dL (1.7-4.1); Glucose 77 mg/dL (80-110); HEMOLYSIS 24 (0-50); Magnesium 1.4 mg/dL (1.6-2.3); Potassium 3.6 mmol/L (3.4-5.1); Sodium 137 mmol/L (137-145); Total Protein 5.1 g/dL (6.3-8.2)
[2024-11-24 07:04] LABS: TSH w/ Reflex to FT4 0.35 uIU/mL (0.47-4.68)
[2024-11-24 07:55] LABS: Free T4, Direct Thyroxine 1.25 ng/dL (0.78-2.19)
[2024-11-24 08:00] VITALS: BP 115/67; PULSE 58; RESP 18; TEMP 36.9; O2SAT 97
[2024-11-24 08:30] VITALS: TEMP 37.7
[2024-11-24] MEDS: MAGNESIUM CHLORIDE 64 MG TABLET 128 MG PO (08:30)
[2024-11-24] MEDS: ENOXAPARIN 40 MG/0.4 ML SYRINGE SUBCUT (08:30)
[2024-11-24] MEDS: OSELTAMIVIR 75 MG CAPSULE PO (08:30)
[2024-11-24] MEDS: ACETAMINOPHEN 325 MG TABLET 650 MG PO (08:30)
--- NOTE | 2024-11-24 09:35 | OT.IP.EVAL ---
Current Diagnoses Sepsis, unspecified organism (11/23/24) Hyperlipidemia, unspecified (11/23/24) Essential (primary) hypertension (11/23/24) Influenza due to identified novel influenza A virus with pneumonia (11/23/24) Acute respiratory failure with hypoxia (11/23/24) Surgical History (Last Reviewed 11/23/24 @ 10:12 by Marion Brenner DO) Anesthesia History of cholecystectomy (~1990) Occupational Therapy Inpatient Evaluation/Re-Eval M1 PT/OT-IP Prior Functional Status Start: 11/24/24 09:31 Freq: NEEDED Status: Active Protocol: Document 11/24/24 09:32 [facility] (Rec: 11/24/24 09:43 [facility] [id number]) Medical Review Prior Functional Status Medical History Reviewed Yes Communication I Mobility and Gait Pt states did not use a device to walk with, however her has a fww and 4ww that she can borrow if needed. Activities of Daily Living and IADL's Pt states was completely independent with all needs prior. Prior Functional Level (Other details) Pt living with her daughter at this time. Social History Household Members spouse,family Living Arrangements House Number of Floors (Floors) One Floor Number of Stairs To Enter/Railing? No steps to enter. Home Environment Standard Height Toilet,Walk in Shower Home Equipment Front Wheel Walker,Four Wheel Walker,Shower Seat with Backrest Additional Social History Comment Currently her is in the hospital as well. M2 OT-IP Current Condition Start: 11/24/24 09:31 Freq: Status: Active Protocol: Document 11/24/24 09:32 [facility] (Rec: 11/24/24 09:43 [facility] [id number]) Occupational Therapy Current Condition Current Condition Evaluation Date 11/24/24 Treatment Diagnosis INfluenza A with PNA Diagnosis Onset Date 11/23/24 M3 OT- IP Subjective and Pain Start: 11/24/24 09:31 Freq: Status: Active Protocol: Document 11/24/24 09:32 [facility] (Rec: 11/24/24 09:43 [facility] [id number]) OT- Subjective Occupational Therapy Visit Type Type Initial Evaluation Visit Start Time 09:00 Visit Stop Time 09:35 Occupational Therapy Visit Comments Patient Comments Pt agreed to get up. Patient/Caregiver Goals TO go home. OT Pain Assessment Pain When Pain Assessed At Rest Pain Present Pain Present Pain Reported M4 OT- IP ADL's Start: 11/24/24 09:31 Freq: Status: Active Protocol: Document 11/24/24 09:32 [facility] (Rec: 11/24/24 09:43 [facility] [id number]) OT IQE-Miep-Efyhqav General Evaluation Self-Feeding Ability Independent OT ADL-Grooming Comments OT Grooming Comments Pt able to wash her hands while at the sink. OT ADL-Oral Care Comments Oral Care Comments Pt refused. OT ADL-Dressing General Eval Lower Body Dressing Ability Standby Assistance Comments OT Dressing Comments SBA for safety for socks and brief management needs. OT ADL-Toileting General Evaluation Toileting Ability Standby Assistance Comments OT Toileting Comments Pt able to complete with SBA. OT ADL-Bathing Comments OT Bathing Comments Not performed at this time and suggested pt uses a shower chair initially. M5 OT- IP IADL's Start: 11/24/24 09:31 Freq: Status: Active Protocol: Document 11/24/24 09:32 [facility] (Rec: 11/24/24 09:43 [facility] [id number]) OT-Instrumental Activities of Daily Living Home Safety Awareness Awareness of Need for Assistance at Home Good Awareness Ability to Problem Solve Emergency Able to Problem Solve Situations Home Safety Comments Pt has supportive family to be able to assist her at home. Medication Management Medication Management No Deficits Identified Money Management Money Management No Deficits Identified Meal Preparation Meal Preparation Comments Pt will benefit from assist initially. Clinical Trial Specialist Clinical Trial Specialist Comments Pt will benefit from assist initially. M6 OT- IP Functional Cognition Start: 11/24/24 09:31 Freq: Status: Active Protocol: Document 11/24/24 09:32 [facility] (Rec: 11/24/24 09:43 [facility] [id number]) Cognitive Factors Limiting Selfcare Function Cognitive Ability Level of Alertness Alert Patient Orientation Name,Age,Birthday,Month,Date, Year,Day of Week,Place, Situation Attention Span Ability Capable of Focused Attention, Capable of Sustained Attention Ability to Follow Commands Able to Follow Multi-Step Commands Cognitive Comments Cognitive Assessment Comments Intact on OT eval. OT- Vision and Hearing OT- Hearing Assessment OT- Hearing Assessment WFL OT- Vision Assessment Visual Acuity Glasses All The Time Visual Attentiveness WFL Occular Pursuits WFL Visual Convergence WFL M7 OT- IP Mobility and Balance Start: 11/24/24 09:31 Freq: Status: Active Protocol: Document 11/24/24 09:32 [facility] (Rec: 11/24/24 09:43 [facility] [id number]) OT- Bed Mobility Assessment Rolling Level of Assistance Standby Assistance Supine to Sit Supine to Sit Assist Standby Assistance Sit to Supine Sit to Supine Assist Standby Assistance Scooting Scooting to Edge of Bed Standby Assistance Scooting Up and Down in Bed Standby Assistance OT-Transfer Assessment Sit to and From Stand Sit to and from Stand Standby Assistance,Contact Guard Assistance Transfers Transfer Ability Standby Assistance,Contact Guard Assistance Technique Transfer Destination Bed,Toilet Transfer Technique Stand Step Pivot Devices Transfer Assistive Devices Gait Belt,Front Wheeled Walker Comments Mobility Comments Pt initially a little unsteady on her feet and needing CGA assist and then close SBA with FWW. OT- Balance Assessment Sitting Balance and Reactions Static Sitting Balance Ability Good Dynamic Sitting Balance Ability Good Standing Balance and Reactions Static Standing Balance Ability Fair Dynamic Standing Balance Ability Fair M8 OT- IP Objective Assessments Start: 11/24/24 09:31 Freq: Status: Active Protocol: Document 11/24/24 09:32 [facility] (Rec: 11/24/24 09:43 [facility] [id number]) OT Gross Range of Motion Upper Extremity Range of Motion Assessment Within Functional Limits OT Strength Upper Extremity Strength Assessment Within Functional Limits OT- Coordination Assessment Upper Extremity Finger to Nose Test Within Functional Limits M9 OT- IP Assessment and Plan Start: 11/24/24 09:31 Freq: Status: Active Protocol: Document 11/24/24 09:32 [facility] (Rec: 11/24/24 09:43 [facility] [id number]) OT Summary Assessment and Plan Potential Rehabilitation Potential Excellent Analytic Complexity at Evaluation Moderate Summary OT Impairments Balance,Functional Mobility, Dressing,Toileting,Bathing, Toilet Transfers,Shower Transfers,Activity Tolerance Progress Towards Goals Progressing Toward Goals Assessment Summary Pt MOD complexity and main barriers are decreased dynamic balance and activity tolerance. Pt BP supine 105/46 and sitting 100/53 . Pt on RA at 93% while up on her feet. Pt to go home with supportive family to assist when medically stable. Able to go over energy conservation with pt. Pt's has a fww and 4ww which she can use if needed. Goals Grooming Goal Independent Dressing Goal Independent Toileting Goal Independent Bathing Goal Independent Toilet Transfer Goal Independent Shower Transfer Goal Independent OT-Other Goals Goals above based on no use of device. Days to Meet Goals 5 Frequency of Treatment Other frequency 5x/week Treatment Plan OT Treatment Plan ADL Training,Functional Mobility,Patient/Family Education,Discharge Planning Other Treatment Recommendations and Next ADL's without a device SBA Treatment Focus Discharge Recommendations OT Discharge Recommendations Home with Assistance Transportation Needs at Discharge Private Vehicle
--- NOTE | 2024-11-24 09:40 | PT.IIE ---
Current Diagnoses Sepsis, unspecified organism (11/23/24) Hyperlipidemia, unspecified (11/23/24) Essential (primary) hypertension (11/23/24) Influenza due to identified novel influenza A virus with pneumonia (11/23/24) Acute respiratory failure with hypoxia (11/23/24) Surgical History (Last Reviewed 11/23/24 @ 10:12 by Marion Brenner DO) Anesthesia History of cholecystectomy (~1990) Physical Therapy Inpatient Evaluation/Re-Eval M1 PT/OT-IP Prior Functional Status Start: 11/24/24 12:13 Freq: NEEDED Status: Active Protocol: Document 11/24/24 09:40 [facility] (Rec: 11/24/24 12:26 AB [id number]) Medical Review Prior Functional Status Medical History Reviewed Yes Communication able to make needs known Mobility and Gait pt stated that she was independent with all mobilities and ambulation without AD Activities of Daily Living and IADL's Pt states was completely independent with all needs prior. Social History Household Members spouse,family Living Arrangements House Number of Floors (Floors) One Floor Number of Stairs To Enter/Railing? pt lives in [place] and is just here visiting her daughter; pt will d/c to her daughter's house: info provided is regarding daughter 's home set up 1 step to enter 1 step down from living room to kitchen Home Environment Standard Height Toilet,Walk in Shower Home Equipment Four Wheel Walker,Hand Held Shower,Grab Bars In Shower M2 PT-IP Current Condition Start: 11/24/24 12:13 Freq: NEEDED Status: Active Protocol: Document 11/24/24 09:40 [facility] (Rec: 11/24/24 12:26 [id number]) Physical Therapy Current Condition Current Condition Evaluation Date 11/24/24 Treatment Diagnosis sepsis; Influenza A; PNA; difficulty in walking Onset Date 11/23/24 M3 PT-IP Subjective Start: 11/24/24 12:13 Freq: NEEDED Status: Active Protocol: Document 11/24/24 09:40 [facility] (Rec: 11/24/24 12:26 [id number]) Subjective Physical Therapy Visit Type Type Initial Evaluation Visit Start Time 09:40 Visit Stop Time 10:10 Number of MOBILE LOUNGE DRIVER Visits 0 Physical Therapy Visit Comments Patient Comments agreeable to do PT M4 PT-IP Mobility and Gait Start: 11/24/24 12:13 Freq: NEEDED Status: Active Protocol: Document 11/24/24 09:40 [facility] (Rec: 11/24/24 12:26 AB [id number]) PT-Bed Mobility Assessment Supine to Sit Supine to Sit Standby Assistance Sit to Supine Sit to Supine Standby Assistance PT-Transfer Assessment Sit to and From Stand Sit to and from Stand Contact Guard Assistance,1 Person Assistance,Use of Upper Extremities Equipment Transfer Assistive Device Gait Belt,Front Wheeled Walker Comments Mobility Comments pt supine in bed and agreeable to do PT. obtained PLOF and home set up. completed supine to sit SBA. able to sit on EOB SBA. O2 sat at RA: 90-92% . O2 sat provided 2L/min: O2 sat 95%. pt completed ambulation using FWW ~ 15 ft SBA to CGA. presents with unsteady shuffling gait. O2 checked: 95-97%. assessed O2 sat at RA and pt maintained O2 sat at 95%. pt ambulated in room without AD CGA ~ 20 ft. O2 sat: 95-97% at RA. pt requested to go back to bed. sit to supine SBA. positioned pt in bed. call light and table placed within reach. Gait Assessment Gait Gait Assistance Required: Standby Assistance,Contact Guard Assist Distance (Feet) 20 Able to Maintain Weight Bearing Status Yes During Gait Assistive Devices Assistive Device None,Gait Belt,Front Wheeled Walker Orthotic/Prosthetic Devices or Brace: No Gait Deviations General Gait Pattern Decreased Stride Length, Decreased Feet Clearance,Step- to Gait Factors Limiting Gait Function Factors Limiting Gait Function Decreased Activity Tolerance, Decreased Strength,Poor Balance,Poor Safety Awareness PT-Balance Assessment Sitting Balance and Reactions Static Sitting Balance Ability Normal Dynamic Sitting Balance Ability Good Standing Balance and Reactions Static Standing Balance Ability Fair Dynamic Standing Balance Ability Fair Device Used without AD M5 PT-IP Objective Assessments Start: 11/24/24 12:13 Freq: NEEDED Status: Active Protocol: Document 11/24/24 09:40 AB (Rec: 11/24/24 12:26 AB [id number]) Orientation Orientation/Cognition Level of Alertness Alert Orientation Name,Situation Language Function Ability Hard of Hearing Safety Awareness Decreased Safety Awareness Memory Description Short Term Impaired Gross Range of Motion Lower Extremity ROM Assessment Within Functional Limits Strength Lower Extremity Strength Assessment Within Functional Limits Coordination Assessment Gross Coordination Gross Coordination WNL Muscle Tone Muscle Tone WNL Yes M6 PT-IP Treatment Start: 11/24/24 12:13 Freq: NEEDED Status: Active Protocol: Document 11/24/24 09:40 AB (Rec: 11/24/24 12:26 AB [id number]) Physical Therapy Treatment Education Education Provided Safety M7 PT-IP Assessment and Plan Start: 11/24/24 12:13 Freq: NEEDED Status: Active Protocol: Document 11/24/24 09:40 AB (Rec: 11/24/24 12:26 AB [id number]) PT Summary Assessment and Plan Potential Rehabilitation Potential Good Status of Condition at Evaluation Evolving Summary Impairments Pain,ROM,Strength,Balance, Cognition,Bed Mobility, Transfers,Gait,Activity Tolerance Assessment Summary pt is a 74 y/o F who is admitted for sepsis, PNA, influenza. pt requiring SBA for bed mobility and SBA to CGA for ambulation using FWW and CGA without AD. pt plans to go home and spouse to asisst. pt may go home when medically stable. Goals Bed Mobility Goal Independent Transfer Goal Independent,Front Wheeled Walker,Four Wheeled Walker Gait Goal Independent,Front Wheel Walker ,Four Wheel Walker Gait Distance 200 Other Goals improve transfers, ambulation without AD ~ 300 ft mod I up/down 1 step SBA Days to Meet Goals 10 Frequency of Treatment Frequency Of Treatment Once a Day Treatment Plan Physical Therapy Treatment Plan Bed Mobility Training,Transfer Training,Gait Training, Therapeutic Exercise,Balance Retraining,Discharge Planning, Hot or Cold Pack,Neuromuscular Re-ed,Coordination Retraining Precautions Other Precautions droplet precautions Recommendations To Nursing Amount of Assist Needed 1 Person Assist Discharge Recommendations PT Discharge Recommendations Home with Assistance Transportation Needs at Discharge Private Vehicle
--- NOTE | 2024-11-24 11:06 | P.DS_ITS ---
History of Present Illness History of Present Illness Date Patient Seen: 11/24/24 Time Patient Seen: 10:45 Chief complaint: GLF Narrative: Per admitting provider, 74 y/o with PMH of HTN and mixed HLD, sustained GLF at home due to generalized and bilateral leg weakness. She did not sustain significant injuries. On presentation febrile, tachycardic, hypotensive, tachypneic. Septic, hypoxemic, with Influenza A pneumonia. Her presented with similar symptoms. Admitted for bronchodilator, Tamiflu, oxygen, IVF, supportive care Discharge Providers Provider Date of admission: 11/23/24 13:42 Discharge Date: 11/24/24 Consults: 11/23/24 16:12 Consult to Occupational Therapy Evaluate & Treat Comment: Physician Instructions: Evaluate and treat Consult to Physical Therapy Evaluate & Treat Comment: Physician Instructions: Evaluate and Treat Discharge provider: Amilcar Gordon DO Summary Hospital Course Discharge Diagnosis: (1) Influenza A with pneumonia, sepsis with acute respiratory failure and hypotension (2) Acute hypoxic respiratory failure: (3) Hyperlipidemia: (4) Essential hypertension: Hospital Course: This is a 74 year old female with PMH of HTN and HLD who was admitted with influenza A. In the ER she was hypoxic on room air and hypotensive but responded to fluids. She was started on tamiflu. She improved quickly, with rapid resolution of hypoxia and stable BP after IV fluids. She felt improved, and was tolerating adequate oral intake. She wished to go home, but did get an evaluation with physical therapy due to her fall, whom also agreed with discharge home. She was provided with a prescription for tamiflu on discharge. Time Spent with Patient Time spent: Less than 30 minutes Exam Vital Signs (past 8 hours): - 11/24/24 04:25 11/24/24 08:00 11/24/24 08:30 Temperature 97.3 F L 98.4 F 99.8 F H Pulse Rate 64 58 L Respiratory Rate 16 18 Blood Pressure 109/61 115/67 Pulse Oximetry 94 97 Oxygen Delivery Method Oxygen Flow Rate 2 0 11/24/24 08:42 Temperature Pulse Rate Respiratory Rate Blood Pressure Pulse Oximetry Oxygen Delivery Method Room Air Oxygen Flow Rate Fraction of Inspired Oxygen 35 SaO2/FiO2 Ratio 277 Oxygen Delivery Method Room Air Oxygen Flow Rate 0 Const Other: in no distress HENMT Other: normocephalic Resp Other: CTA b/l Cardio Other: RRR Neuro Other: no deficits Extrem Other: w/o swelling Objective Labs 11/24/24 06:03 11/24/24 06:03 Labs: Laboratory Results - last 24 hr 11/23/24 11/23/24 11/24/24 12:40 13:35 06:03 WBC 14.5 H D RBC 4.06 Hgb 12.1 Hct 36.1 MCV 88.7 MCH 29.7 MCHC 33.4 RDW 13.6 Plt Count 183 Neut % (Auto) 84.7 H Lymph % (Auto) 10.6 L [place] % (Auto) 4.5 Eos % (Auto) 0.0 L Baso % (Auto) 0.2 Neut # (Auto) 65587 H Lymph # (Auto) 1500 [place] # (Auto) 700 Eos # (Auto) 0 Baso # (Auto) 0 Sodium 137 Potassium 3.6 Chloride 111 H Carbon Dioxide 21 L BUN 16 Creatinine 0.79 Estimated GFR > 60 BUN/Creatinine Ratio 20.3 Glucose 77 L Lactate 1.1 Calcium 8.3 L Magnesium 1.4 L Total Bilirubin 0.8 AST 140 H ALT 108 H Alkaline Phosphatase 85 Total Protein 5.1 L Albumin 2.9 L Globulin 2.2 Albumin/Globulin Ratio 1.3 TSH 0.35 L Free T4 1.25 Urine Color Yellow Urine Appearance Clear Urine pH 6.5 Ur Specific [place] 1.010 Urine Protein Negative Urine Glucose (UA) Negative Urine Ketones Negative Urine Occult Blood Negative Urine Nitrate Negative Urine Bilirubin Negative Urine Urobilinogen 2.0 H Ur Leukocyte Esterase Negative Urine RBC None seen Urine WBC None seen Ur Squamous Epith Cells None seen Urine Bacteria None seen Ur Culture Indicated? Cult not indicated Vol Urine Centrifuged 10ml (spun) [facility] Surgical History Anesthesia History of cholecystectomy (~1990) Family History Father History of heart disease Mother Stroke Social History household members: spouse and family Smoking Status: Never smoker alcohol intake: current Discharge Plan Discharge Plan Patient Disposition: Home Provider Discharge Comment: You were admitted to the hospital with influenza pneumonia. You briefly required oxygen but this improved quickly. Please complete course of tamiflu at home. Continue supportive care medications like tylenol and motrin. Discharge orders & Medications Prescriptions: New oseltamivir 75 mg capsule 75 mg PO BID 5 Days Qty: 10 0RF Continued nitroglycerin 0.4 mg Tablet, Sublingual 0.4 mg sublingual PRN PRN (Reason: Angina) Follow up/Referrals: Luiza Hunt ARNP [Advanced Elevator Installer Apprentice] - Diet/Activity/Treatments Diet: Diet as Tolerated and Regular Activity: As tolerated, no restrictions Visit Report/Discharge Packet Instructions: DI for Pneumonia -- Adult, DI for Influenza -- Adult Stand Alone Forms: Patient Portal/API, Stroke Signs & Symptoms Quality VTE Deep Vein Thrombosis/Pulmonary Embolism Present on Admission: No
--- NOTE | 2024-11-27 13:02 | PC.NURSE ---
late entry- per RN 1457 dose of Azithromycin was completed at 1600
== END 2024-11-24 14:26 | disposition home or self-care (01) | DRG 871 ==
LOC: ED 12:50 → AC 13:42
PROVIDERS: Admitting Provider Internal Medicine; Emergency Provider Emergency Medicine; Referring Provider Emergency Medicine; Visit Provider Internal Medicine
DX: A41.9 Sepsis, unspecified organism (principal); J10.01 Influenza due to other identified influenza virus with the same other identified influenza virus pneumonia; J96.01 Acute respiratory failure with hypoxia; E78.2 Mixed hyperlipidemia; I10 Essential (primary) hypertension; R53.1 Weakness; R55 Syncope and collapse; R65.20 Severe sepsis without septic shock; I95.9 Hypotension, unspecified
CPT/HCPCS: 0241U; 36415; 70450; 71045; 76705; 80053; 81001; 82550; 83605; 83735; 84145; 84439; 84443; 84484; 85025; 87040; 93005; 94762; 96361; 96365; 96367; 97162; 97166; 97530; 99285; 99291; J0696; J1650